=== PATIENT | female | born 1940 | race Caucasian/White ===

== ENCOUNTER 2018-12-03 22:20 | Inpatient (IN) | payer MEDICARE, OTHER ==
--- NOTE | 2018-12-03 23:07 | ED ---
General Adult HPI - General Chief complaint: Recheck/Abnormal Lab/Rx Stated complaint: abnormal labs Time Seen by Provider: 12/03/18 22:24 Source: patient, EMS Mode of arrival: EMS Limitations: no limitations - History of Present Illness Initial comments: This patient is a 78-year-old woman with history of COPD and a number of other chronic medical issues who is transferred here from [facility], where she was seen earlier today. The patient states that she had gone there because she was not feeling well. She did have a difficult time fully characterizing what was going on but has been having generalized weakness and shortness of breath with a cough. At the other hospital she had workup that included CT of the brain, chest x-ray, and lab studies. She was diagnosed there with COPD exacerbation, hyponatremia, hypomagnesemia, and possible hypothyroidism and she was transferred here for further treatment. When I interview the patient, she states that her breathing is somewhat improved from earlier. She is only complaining of some back pain that she states is from a rib fracture she had between 1 and 2 weeks ago. She is denying other complaints. -: days(s) Consistency: constant Improves with: none Worsens with: none Associated Symptoms: cough, shortness of breath, weakness Treatments Prior to Arrival: other - Related Data Home Medications Medication Instructions Recorded Confirmed ALPRAZolam [Xanax] 0.25 mg PO BID PRN 12/03/18 12/03/18 Albuterol Nebulized [Ventolin 2.5 mg INHALATION RT-QID PRN 12/03/18 12/03/18 Nebulized] Albuterol Sulfate [Proair Hfa] 1 - 2 puff INHALATION RT-QID PRN 12/03/18 12/03/18 Cetirizine HCl 10 mg PO DAILY 12/03/18 12/03/18 Esomeprazole Magnesium [NexIUM] 40 mg PO DAILY 12/03/18 12/03/18 Levothyroxine Sodium [Synthroid] 175 mcg PO DAILY 12/03/18 12/03/18 Phenytoin Sodium Extended 100 mg PO BID 12/03/18 12/04/18 [Dilantin] Sertraline [Zoloft] 50 mg PO BID 12/03/18 12/03/18 Simvastatin 40 mg PO HS 12/03/18 12/03/18 Timolol 0.5% Ophth Soln [Timoptic 1 drop BOTH EYES DAILY 12/03/18 12/03/18 0.5% Ophth Soln] Previous Rx's Medication Instructions Recorded Budesonide [Pulmicort] 1 mg INHALATION RT-BID #30 nebu 12/05/18 Doxycycline [Vibramycin] 100 mg PO BID #6 cap 12/05/18 Valsartan [Diovan] 160 mg PO DAILY #30 tablet 12/05/18 predniSONE 10 mg PO DAILY #30 tab 12/05/18 Allergies Allergy/AdvReac Type Severity Reaction Status Date / Time acetaminophen Allergy Unknown Verified 12/03/18 22:49 [From Darvocet-N] diazepam [From Valium] Allergy Unknown Verified 12/03/18 22:49 Iodinated Contrast- Oral and Allergy Unknown Verified 12/03/18 22:49 IV Dye meperidine [From Demerol] Allergy Unknown Verified 12/03/18 22:49 propoxyphene Allergy Unknown Verified 12/03/18 22:49 [From Darvocet-N] ragweed pollen Allergy Unknown Verified 12/03/18 22:49 phenytoin AdvReac Confusion Verified 12/06/18 11:16 Review of Systems ROS Statement: Those systems with pertinent positive or pertinent negative responses have been documented in the HPI. ROS Other: All systems not noted in ROS Statement are negative. Constitutional: Reports: weakness (Generalized). Denies: fever, chills Eyes: Denies: vision change ENT: Denies: throat pain Respiratory: Reports: cough, dyspnea, wheezes Cardiovascular: Denies: chest pain, palpitations, orthopnea, syncope Gastrointestinal: Denies: abdominal pain, vomiting, diarrhea Genitourinary: Denies: dysuria Musculoskeletal: Denies: back pain Skin: Denies: rash Neurological: Denies: headache, weakness, numbness Past Medical History Past Medical History: COPD Additional Past Medical History / Comment(s): Hypothyroidism, Brain Aneurysm, NSTEMI, Skin Cancer History of Any Multi-Drug Resistant Organisms: None Reported Past Surgical History: Appendectomy, Cholecystectomy, Hysterectomy Additional Past Surgical History / Comment(s): breast lumpectomy Past Psychological History: Anxiety, Depression Smoking Status: Former smoker Past Alcohol Use History: None Reported Past Drug Use History: None Reported - Past Family History Mother Family Medical History: Cancer Additional Family Medical History / Comment(s): unsure what type of cancer General Exam General appearance: alert, in no apparent distress Head exam: Present: atraumatic, normocephalic Eye exam: Present: normal appearance. Absent: scleral icterus, conjunctival injection ENT exam: Present: normal oropharynx Neck exam: Present: normal inspection, full ROM Respiratory exam: Present: wheezes. Absent: respiratory distress, rales, rhonchi, stridor Cardiovascular Exam: Present: regular rate, normal rhythm, normal heart sounds GI/Abdominal exam: Present: soft. Absent: distended, tenderness, guarding, rebound, rigid, mass Extremities exam: Present: normal inspection, normal capillary refill. Absent: pedal edema, calf tenderness Neurological exam: Present: alert Skin exam: Present: warm, dry, intact, normal color. Absent: rash Course Vital Signs 12/03/18 12/04/18 22:22 00:16 Temperature 97.3 F L Pulse Rate 72 81 Respiratory 18 18 Rate Blood Pressure 119/60 133/84 O2 Sat by Pulse 95 96 Oximetry Medical Decision Making - Lab Data Result diagrams: 12/04/18 07:25 12/07/18 07:04 Disposition Clinical Impression: COPD (chronic obstructive pulmonary disease) Disposition: ADMITTED IP TO THIS HOSP Condition: Fair Is patient prescribed a controlled substance at d/c from ED?: No
[2018-12-03] MEDS: SODIUM CHLORIDE 0.9% 1,000 ML IV SCH (23:46)
[2018-12-04 00:44] VITALS: BMI 35.6
[2018-12-04] MEDS: methylPREDNISolone SOD SUCCI 125 MG/2 ML VIAL IV SCH ×3 (00:54→12:40)
[2018-12-04] MEDS: ALPRAZolam 0.25 MG TAB PO PRN (00:54)
[2018-12-04] MEDS: LEVOTHYROXINE 100 MCG TAB PO SCH (05:44)
[2018-12-04] MEDS: LEVOTHYROXINE 75 MCG TAB PO SCH (05:44)
[2018-12-04] MEDS: ALBUTEROL NEBULIZED 2.5 MG/3 ML INHALATION SCH ×2 (07:10→11:49)
[2018-12-04 07:45] LABS: Basophils % (A) 0 %; Eosinophils % (A) 2 %; HCT 36.5 % (34.0-46.0); HGB 11.5 gm/dL (11.4-16.0); Lymphocytes # (A) 0.4 k/uL (1.0-4.8); Lymphocytes % (A) 13 %; MCH 29.5 pg (25.0-35.0); MCHC 31.5 g/dL (31.0-37.0); MCV 93.7 fL (80.0-100.0); Mean Platelet Volume 8.5; Monocytes # (A) 0.1 k/uL (0-1.0); Monocytes % (A) 4 %; Neutrophils # (A) 2.2 k/uL (1.3-7.7); Neutrophils % (A) 80 %; Platelet Count 208 k/uL (150-450); RBC 3.89 m/uL (3.80-5.40); RDW 15.2 % (11.5-15.5); WBC 2.7 k/uL (3.8-10.6)
[2018-12-04 07:54] LABS: ALT 56 U/L (9-52); AST 96 U/L (14-36); Albumin 4.4 g/dL (3.5-5.0); Alkaline Phosphatase 119 U/L (38-126); Anion Gap 5 mmol/L; Blood Urea Nitrogen 13 mg/dL (7-17); Calcium 9.2 mg/dL (8.4-10.2); Carbon Dioxide 35 mmol/L (22-30); Chloride 89 mmol/L (98-107); Glucose 122 mg/dL (74-99); Potassium 5.1 mmol/L (3.5-5.1); Sodium 129 mmol/L (137-145); Total Bilirubin 0.5 mg/dL (0.2-1.3); Total Protein 7.1 g/dL (6.3-8.2)
[2018-12-04] MEDS ORDERED: BUDESONIDE 0.5 MG/2 ML NEBU INHALATION SCH (08:00)
[2018-12-04] MEDS ORDERED: IPRATROPIUM-ALBUTEROL 3 ML NEB INHALATION SCH (08:00)
[2018-12-04] MEDS: PANTOPRAZOLE 40 MG TABLET PO SCH (08:08)
[2018-12-04] MEDS: SERTRALINE 50 MG TAB PO SCH ×2 (08:08→20:18)
[2018-12-04] MEDS ORDERED: PHENYTOIN SODIUM EXTENDED 100 MG CAP PO SCH (10:00)
[2018-12-04] MEDS: SODIUM CHLORIDE 0.9% 1,000 ML IV SCH ×2 (12:46→19:38)
--- NOTE | 2018-12-04 13:44 | P.HPIM ---
History of Present Illness Patient is pleasant 78-year-old female left known history of COPD based 2 L of oxygen at home With compensative shortness of breath and wheezing was transferred from [facility]. Patient was on 5 L of oxygen is treated now on 4 L. Patient is feeling much better today complaining of shortness of breath unable to bring up anything when she is coughing. Chest x-ray did not show any significant abnormality patient also had workup with CT of the brain not sure why but did not show any significant abnormality either. Patient is bit hyponatremic because of which diuretic therapy is being held. There is no evidence of pneumonia patient doesn't have any fevers, leukocytosis. Review of Systems REVIEW OF SYSTEMS: CONSTITUTIONAL: No fever, no malaise, no fatigue. HEENT: No recent visual problems or hearing problems. Denied any sore throat. CARDIOVASCULAR: No chest pain, orthopnea, PND, no palpitations, no syncope. PULMONARY: no hemoptysis. GASTROINTESTINAL: No diarrhea, no nausea, no vomiting, no abdominal pain. NEUROLOGICAL: No headaches, no weakness, no numbness. HEMATOLOGICAL: Denies any bleeding or petechiae. GENITOURINARY: Denies any burning micturition, frequency, or urgency. MUSCULOSKELETAL/RHEUMATOLOGICAL: Denies any joint pain, swelling, or any muscle pain. ENDOCRINE: Denies any polyuria or polydipsia. The rest of the 14-point review of systems is negative. Past Medical History Past Medical History: COPD, Seizure Disorder Additional Past Medical History / Comment(s): Hypothyroidism, Brain Aneurysm, NSTEMI, Skin Cancer History of Any Multi-Drug Resistant Organisms: None Reported Past Surgical History: Appendectomy, Cholecystectomy, Hysterectomy Additional Past Surgical History / Comment(s): breast lumpectomy Past Anesthesia/Blood Transfusion Reactions: No Reported Reaction Past Psychological History: Anxiety, Depression Smoking Status: Former smoker Past Alcohol Use History: None Reported Past Drug Use History: None Reported - Past Family History Mother Family Medical History: Cancer Additional Family Medical History / Comment(s): unsure what type of cancer Medications and Allergies Home Medications Medication Instructions Recorded Confirmed Type ALPRAZolam [Xanax] 0.25 mg PO BID PRN 12/03/18 12/03/18 History Albuterol Nebulized [Ventolin 2.5 mg INHALATION RT-QID PRN 12/03/18 12/03/18 History Nebulized] Albuterol Sulfate [Proair Hfa] 1 - 2 puff INHALATION RT-QID PRN 12/03/18 12/03/18 History Cetirizine HCl 10 mg PO DAILY 12/03/18 12/03/18 History Esomeprazole Magnesium [NexIUM] 40 mg PO DAILY 12/03/18 12/03/18 History Levothyroxine Sodium [Synthroid] 175 mcg PO DAILY 12/03/18 12/03/18 History Phenytoin Sodium Extended 100 mg PO BID 12/03/18 12/04/18 History [Dilantin] Sertraline [Zoloft] 50 mg PO BID 12/03/18 12/03/18 History Simvastatin 40 mg PO HS 12/03/18 12/03/18 History Timolol 0.5% Ophth Soln [Timoptic 1 drop BOTH EYES DAILY 12/03/18 12/03/18 History 0.5% Ophth Soln] Valsartan/Hydrochlorothiazide 1 tab PO HS 12/03/18 12/03/18 History [Valsartan-Hctz 160-12.5 mg Tab] Allergies Allergy/AdvReac Type Severity Reaction Status Date / Time acetaminophen Allergy Unknown Verified 12/03/18 22:49 [From Darvocet-N] diazepam [From Valium] Allergy Unknown Verified 12/03/18 22:49 Iodinated Contrast- Oral and Allergy Unknown Verified 12/03/18 22:49 IV Dye meperidine [From Demerol] Allergy Unknown Verified 12/03/18 22:49 propoxyphene Allergy Unknown Verified 12/03/18 22:49 [From Darvocet-N] ragweed pollen Allergy Unknown Verified 12/03/18 22:49 Physical Exam Vitals: Vital Signs Temp Pulse Pulse Resp BP BP BP 12/04/18 12:30 96.7 F L 69 20 163/69 12/04/18 11:50 74 12/04/18 07:23 72 12/04/18 07:10 72 12/04/18 05:15 97.6 F 68 18 116/83 12/04/18 00:47 97.4 F L 78 22 149/89 12/04/18 00:25 77 18 113/84 12/04/18 00:16 81 18 133/84 12/03/18 22:22 97.3 F L 72 18 119/60 Pulse Ox 12/04/18 12:30 96 12/04/18 11:50 12/04/18 07:23 12/04/18 07:10 12/04/18 05:15 98 12/04/18 00:47 92 L 12/04/18 00:25 96 12/04/18 00:16 96 12/03/18 22:22 95 Intake and Output 12/03/18 12/04/18 12/04/18 22:59 06:59 14:59 Other: Voiding Method Toilet # Voids 1 2 Weight 104.78 kg PHYSICAL EXAMINATION: GENERAL: The patient is alert and oriented x3, not in any acute distress. Well developed, well nourished. HEENT: Pupils are round and equally reacting to light. EOMI. No scleral icterus. No conjunctival pallor. Normocephalic, atraumatic. No pharyngeal erythema. No thyromegaly. CARDIOVASCULAR: S1 and S2 present. No murmurs, rubs, or gallops. PULMONARY: Expiratory wheezing on exam moderate ABDOMEN: Soft, nontender, nondistended, normoactive bowel sounds. No palpable organomegaly. MUSCULOSKELETAL: No joint swelling or deformity. EXTREMITIES: No cyanosis, clubbing, or pedal edema. NEUROLOGICAL: Gross neurological examination did not reveal any focal deficits. SKIN: No rashes. Results CBC & Chem 7: 12/04/18 07:25 12/04/18 07:25 Labs: Abnormal Lab Results - Last 24 Hours (Table) 12/04/18 12/04/18 Range/Units 07:25 07:25 WBC 2.7 L (3.8-10.6) k/uL Lymphocytes # 0.4 L (1.0-4.8) k/uL Sodium 129 L (137-145) mmol/L Chloride 89 L (98-107) mmol/L Carbon Dioxide 35 H (22-30) mmol/L Glucose 122 H (74-99) mg/dL AST 96 H (14-36) U/L ALT 56 H (9-52) U/L Thrombosis Risk Factor Assmnt - Choose All That Apply Any of the Below Risk Factors Present?: Yes Each Factor Represents 1 point: Abnormal pulmonary function (COPD), Obesity (BMI >25) Other Risk Factors: Yes Each Risk Factor Represents 3 Points: Age 75 years or older Other congenital or acquired thrombophilia - If yes, enter type in comment: No Thrombosis Risk Factor Assessment Total Risk Factor Score: 5 Thrombosis Risk Factor Assessment Level: High Risk Assessment and Plan Plan: Equally and chronic hypercapnic respiratory failure secondary to COPD ex acerbation patient will be continued on systemic steroids and I will not start her on antibiotics yet abut the pulmonary will be consulted. Patient quit smoking 10 years ago -Hyponatremia secondary to diuretic therapy for hypertension which will be held valsartan will be continued -Seizure disorder continue with the Hypothyroidism -Hypertension -Glaucoma -Mildly elevated liver enzymes repeat them tomorrow -GI prophylaxis with the Pepcid DVT prophylaxis early ambulation
--- NOTE | 2018-12-04 14:35 | P.CNPUL ---
History of Present Illness Consult date: 12/04/18 Requesting physician: Xin San Reason for consult: dyspnea, cough Chief complaint: Shortness of breath, generalized weakness, cough History of present illness: This is 78-year-old white female patient who follows with the BROOK Franco at Dr. Marrufo's office with past medical history of severe COPD, with a baseline FEV1 of 0.5 L or 19% of predicted, with chronic hypoxemic respiratory failure, chronic cor pulmonale, chronic dyspnea, hypertension, hypothyroidism, seizure disorder, osteoarthritis, brain aneurysm, previous episodes of myocardial infarction who presented to her primary care provider office yesterday on 12/03/2018 with complaints of worsening shortness of breath, cough. Patient was sent to the emergency department for further evaluation, where chest x-ray was completed and did not show any significant abnormality. Patient also had a CT of the brain at another institution for an unknown reason. Lab work showed hyponatremia, hypomagnesemia, and possible hypothyroidism, patient was transferred to [facility] for further treatment. Lab work completed here showed a white blood cell count of 2.7, hemoglobin of 11.5, serum sodium was 129, potassium is 5.1, chloride was 89, CO2 is 35, BUN is 13, creatinine is 0.60. AST is 96, ALT 56, alkaline phosphatase was 119, Dilantin level was 21. Patient was started on IV steroids, nebulized bronchodilators, and on today's exam patient states she's feeling much better, short of breath. Her diuretics are on hold for evidence of hyponatremia, she is awake and alert, no altered mentation, no seizure activity. There has been no fever or chills. Lung sounds reveal some expiratory wheezes, patient is in no acute distress. She is requesting to go home today. Review of Systems All systems: negative Constitutional: Denies chills, Denies fever Eyes: denies blurred vision, denies pain Ears, nose, mouth and throat: Denies headache, Denies sore throat Cardiovascular: Denies chest pain, Denies shortness of breath Respiratory: Reports dyspnea Gastrointestinal: Denies abdominal pain, Denies diarrhea, Denies nausea, Denies vomiting Genitourinary: Denies dysuria, Denies hematuria Musculoskeletal: Denies myalgias Integumentary: Denies pruritus, Denies rash Neurological: Denies numbness, Denies weakness Psychiatric: Denies anxiety, Denies depression Endocrine: Denies fatigue, Denies weight change Past Medical History Past Medical History: COPD, Seizure Disorder Additional Past Medical History / Comment(s): Hypothyroidism, Brain Aneurysm, NSTEMI, Skin Cancer History of Any Multi-Drug Resistant Organisms: None Reported Past Surgical History: Appendectomy, Cholecystectomy, Hysterectomy Additional Past Surgical History / Comment(s): breast lumpectomy Past Anesthesia/Blood Transfusion Reactions: No Reported Reaction Past Psychological History: Anxiety, Depression Smoking Status: Former smoker Past Alcohol Use History: None Reported Past Drug Use History: None Reported - Past Family History Mother Family Medical History: Cancer Additional Family Medical History / Comment(s): unsure what type of cancer Medications and Allergies Home Medications Medication Instructions Recorded Confirmed Type ALPRAZolam [Xanax] 0.25 mg PO BID PRN 12/03/18 12/03/18 History Albuterol Nebulized [Ventolin 2.5 mg INHALATION RT-QID PRN 12/03/18 12/03/18 History Nebulized] Albuterol Sulfate [Proair Hfa] 1 - 2 puff INHALATION RT-QID PRN 12/03/18 12/03/18 History Cetirizine HCl 10 mg PO DAILY 12/03/18 12/03/18 History Esomeprazole Magnesium [NexIUM] 40 mg PO DAILY 12/03/18 12/03/18 History Levothyroxine Sodium [Synthroid] 175 mcg PO DAILY 12/03/18 12/03/18 History Phenytoin Sodium Extended 100 mg PO BID 12/03/18 12/04/18 History [Dilantin] Sertraline [Zoloft] 50 mg PO BID 12/03/18 12/03/18 History Simvastatin 40 mg PO HS 12/03/18 12/03/18 History Timolol 0.5% Ophth Soln [Timoptic 1 drop BOTH EYES DAILY 12/03/18 12/03/18 History 0.5% Ophth Soln] Valsartan/Hydrochlorothiazide 1 tab PO HS 12/03/18 12/03/18 History [Valsartan-Hctz 160-12.5 mg Tab] Allergies Allergy/AdvReac Type Severity Reaction Status Date / Time acetaminophen Allergy Unknown Verified 12/03/18 22:49 [From Darvocet-N] diazepam [From Valium] Allergy Unknown Verified 12/03/18 22:49 Iodinated Contrast- Oral and Allergy Unknown Verified 12/03/18 22:49 IV Dye meperidine [From Demerol] Allergy Unknown Verified 12/03/18 22:49 propoxyphene Allergy Unknown Verified 12/03/18 22:49 [From Darvocet-N] ragweed pollen Allergy Unknown Verified 12/03/18 22:49 Physical Exam Vitals: Vital Signs Temp Pulse Pulse Resp BP BP BP 12/04/18 12:30 96.7 F L 69 20 163/69 12/04/18 11:50 74 12/04/18 07:23 72 12/04/18 07:10 72 12/04/18 05:15 97.6 F 68 18 116/83 12/04/18 00:47 97.4 F L 78 22 149/89 12/04/18 00:25 77 18 113/84 12/04/18 00:16 81 18 133/84 12/03/18 22:22 97.3 F L 72 18 119/60 Pulse Ox 12/04/18 12:30 96 12/04/18 11:50 12/04/18 07:23 12/04/18 07:10 12/04/18 05:15 98 12/04/18 00:47 92 L 12/04/18 00:25 96 12/04/18 00:16 96 12/03/18 22:22 95 Intake and Output 12/03/18 12/04/18 12/04/18 22:59 06:59 14:59 Other: Voiding Method Toilet # Voids 1 2 Weight 104.78 kg GENERAL EXAM: Alert, doesn't, 78-year-old white female 4 L of oxygen with a pulse ox of 96%, comfortable in no apparent distress. HEAD: Normocephalic/atraumatic. EYES: Normal reaction of pupils, equal size. Conjunctiva pink, sclera white. NOSE: Clear with pink turbinates. THROAT: No erythema or exudates. NECK: No masses, no JVD, no thyroid enlargement, no adenopathy. CHEST: No chest wall deformity. Symmetrical expansion. LUNGS: Equal air entry with no crackles, and there are some expiratory wheezes CVS: Regular rate and rhythm, normal S1 and S2, no gallops, no murmurs, no rubs ABDOMEN: Soft, nontender. No hepatosplenomegaly, normal bowel sounds, no guarding or rigidity. EXTREMITIES: No clubbing, no edema, no cyanosis, 2+ pulses and upper and lower extremities. MUSCULOSKELETAL: Muscle strength and tone normal. SPINE: No scoliosis or deformity SKIN: No rashes CENTRAL NERVOUS SYSTEM: Alert and oriented -3. No focal deficits, tone is normal in all 4 extremities. PSYCHIATRIC: Alert and oriented -3. Appropriate affect. Intact judgment and insight. Results - Laboratory Findings CBC and BMP: 12/04/18 07:25 12/04/18 07:25 Abnormal lab findings: Abnormal Labs 12/04/18 12/04/18 07:25 07:25 WBC 2.7 L Lymphocytes # 0.4 L Sodium 129 L Chloride 89 L Carbon Dioxide 35 H Glucose 122 H AST 96 H ALT 56 H Assessment and Plan Plan: Assessment: #1. Acute on chronic hypoxemic respiratory failure related to acute exacerbation of COPD, and the reports of the chest x-ray completed at another institution were negative for acute pulmonary process #2. Severe stage IV COPD, with a baseline FEV1 of 0.50 L or 19% of predicted, with chronic hypoxemic respiratory failure #3. Hyponatremia and hypochloremia, could be related to diuretics, patient is receiving gentle hydration #4. Chronic hypercapnic respiratory failure related to COPD #5. Leukopenia #6. Hypothyroidism #7. Hyperlipidemia #8. Hypertension #9. Chronic cor pulmonale #10. GERD/reflux #11. Intracranial aneurysm #12. Seizure disorder Plan: Continue current medical treatment, IV steroids, nebulized bronchodilators, patient is already feeling better, she is requesting to go home today, no fever or chills, vital signs have been stable, she could probably be considered for discharge home in the next 24 hours, repeat electrolytes and renal profile. Obtain a follow-up chest x-ray in the morning I performed a history & physical examination of the patient and discussed their management with my nurse practitioner, Oliva Mota. I reviewed the nurse practitioner's note and agree with the documented findings and plan of care. Lung sounds are positive for diffuse wheezes throughout the lung meyers. The findings and the impression was discussed with the patient. I attest to the documentation by the nurse practitioner. Time with Patient: Greater than 30
[2018-12-04] MEDS: IPRATROPIUM-ALBUTEROL 3 ML NEB INHALATION SCH ×2 (16:04→19:27)
[2018-12-04] MEDS: HEPARIN SODIUM,PORCINE 5,000 UNIT/ML 1 ML VIAL SQ SCH ×2 (18:46→23:15)
[2018-12-04] MEDS: FORMOTEROL FUMARATE 20 MCG/2 ML NEBU INHALATION SCH (19:27)
[2018-12-04] MEDS: BUDESONIDE 1 MG/2 ML NEBU INHALATION SCH (19:27)
[2018-12-04] MEDS: FAMOTIDINE 20 MG TAB PO SCH (20:18)
[2018-12-04] MEDS: DOXYCYCLINE 100 MG CAP PO SCH (20:18)
[2018-12-04] MEDS: PHENYTOIN SODIUM EXTENDED 100 MG CAP PO SCH (20:18)
[2018-12-04] MEDS: methylPREDNISolone SOD SUCCI 40 MG/ML 1 ML VIAL IV SCH (20:18)
[2018-12-04] MEDS: ATORVASTATIN 20 MG TAB PO SCH (20:18)
[2018-12-04] MEDS ORDERED: HYDROCHLOROTHIAZIDE PO SCH (21:00)
[2018-12-04] MEDS ORDERED: [UNRECOGNIZED DRUG - OTHER] PO SCH (21:00)
[2018-12-04] MEDS ORDERED: VALSARTAN PO SCH (21:00)
[2018-12-05] MEDS: ALPRAZolam 0.25 MG TAB PO PRN ×3 (00:11→20:23)
[2018-12-05] MEDS: SODIUM CHLORIDE 0.9% 1,000 ML IV SCH (05:24)
[2018-12-05] MEDS: LEVOTHYROXINE 75 MCG TAB PO SCH (05:37)
[2018-12-05] MEDS: LEVOTHYROXINE 100 MCG TAB PO SCH (05:37)
[2018-12-05] MEDS: FORMOTEROL FUMARATE 20 MCG/2 ML NEBU INHALATION SCH ×2 (07:26→19:43)
[2018-12-05] MEDS: BUDESONIDE 1 MG/2 ML NEBU INHALATION SCH ×2 (07:26→19:43)
[2018-12-05] MEDS: IPRATROPIUM-ALBUTEROL 3 ML NEB INHALATION SCH ×4 (07:26→19:43)
[2018-12-05] MEDS: methylPREDNISolone SOD SUCCI 40 MG/ML 1 ML VIAL IV SCH (08:06)
[2018-12-05] MEDS: PANTOPRAZOLE 40 MG TABLET PO SCH (08:06)
[2018-12-05] MEDS: FAMOTIDINE 20 MG TAB PO SCH ×2 (08:07→20:23)
[2018-12-05] MEDS: HEPARIN SODIUM,PORCINE 5,000 UNIT/ML 1 ML VIAL SQ SCH ×3 (08:07→23:07)
[2018-12-05] MEDS: DOXYCYCLINE 100 MG CAP PO SCH ×2 (08:07→20:23)
[2018-12-05] MEDS: PHENYTOIN SODIUM EXTENDED 100 MG CAP PO SCH (08:07)
[2018-12-05] MEDS: SERTRALINE 50 MG TAB PO SCH ×2 (08:08→20:23)
[2018-12-05] MEDS: TIMOLOL 0.5% OPHTH DROPS 5 ML BTL BOTH EYES SCH (08:08)
[2018-12-05 08:20] LABS: ALT 52 U/L (9-52); AST 86 U/L (14-36); Albumin 4.1 g/dL (3.5-5.0); Alkaline Phosphatase 102 U/L (38-126); Anion Gap 3 mmol/L; Blood Urea Nitrogen 12 mg/dL (7-17); Calcium 9.3 mg/dL (8.4-10.2); Carbon Dioxide 37 mmol/L (22-30); Chloride 94 mmol/L (98-107); Glucose 85 mg/dL (74-99); Magnesium 1.5 mg/dL (1.6-2.3); Potassium 4.8 mmol/L (3.5-5.1); Sodium 134 mmol/L (137-145); Total Bilirubin 0.3 mg/dL (0.2-1.3); Total Protein 6.6 g/dL (6.3-8.2)
--- NOTE | 2018-12-05 08:23 | XR ---
EXAMINATION TYPE: XR chest 2V DATE OF EXAM: 12/05/2018 COMPARISON: NONE HISTORY: Shortness of breath TECHNIQUE: Frontal and lateral views of the chest are obtained. FINDINGS: The lungs are hyperaerated with flattening of the diaphragms compatible with underlying CO PD. Bibasilar atelectasis is seen. Cardia mediastinal silhouette is upper limits of normal. No focal consolidation, pleural effusion or pneumothorax. Punctate dense 3 mm nodule overlies the right clavic le and given its density could represent a granuloma however confirmation with CT as there are no douglas ors for comparison of stability. IMPRESSION: 1. Bibasilar atelectasis with underlying COPD. 2. 3 mm hyperdense right apical nodule likely represents a granuloma however comparisons with any douglas or outside imaging to determine stability would be recommended.
[2018-12-05] MEDS ORDERED: FUROSEMIDE 10 MG/ML 2 ML VIAL IV ONE (08:44)
--- NOTE | 2018-12-05 10:25 | P.PN ---
Subjective Progress Note Date: 12/05/18 Principal diagnosis: Acute on chronic hypercapnic respiratory failure related to acute exacerbation of COPD This is 78-year-old white female patient who follows with the BROOK Franco at Dr. Marrufo's office with past medical history of severe COPD, with a baseline FEV1 of 0.5 L or 19% of predicted, with chronic hypoxemic respiratory failure, chronic cor pulmonale, chronic dyspnea, hypertension, hypothyroidism, seizure disorder, osteoarthritis, brain aneurysm, previous episodes of myocardial infarction who presented to her primary care provider office yesterday on 12/03 with complaints of worsening shortness of breath, cough. Patient was sent to the emergency department for further evaluation, where chest x-ray was completed and did not show any significant abnormality. Patient also had a CT of the brain at another institution for an unknown reason. Lab work showed hyponatremia, hypomagnesemia, and possible hypothyroidism, patient was transferred to [facility] for further treatment. Lab work completed here showed a white blood cell count of 2.7, hemoglobin of 11.5, serum sodium was 129, potassium is 5.1, chloride was 89, CO2 is 35, BUN is 13, creatinine is 0.60. AST is 96, ALT 56, alkaline phosphatase was 119, Dilantin level was 21. Patient was started on IV steroids, nebulized bronchodilators, and on today's exam patient states she's feeling much better, short of breath. Her diuretics are on hold for evidence of hyponatremia, she is awake and alert, no altered mentation, no seizure activity. There has been no fever or chills. Lung sounds reveal some expiratory wheezes, patient is in no acute distress. She is requesting to go home today. On 12/05/2018 patient seen in follow-up on medical surgical floor. Doing well, she states she is breathing easier, vital signs are stable, no fever or chills, lung sounds are decreased at the bases, with minimal wheezing, today's labs show improvement in serum sodium, up to 134, potassium is 4.8, chloride is 94, CO2 is 37, bun of 12, and creatinine 0.56. Today's chest x-ray has been reviewed with Dr. Molina, and shows bibasilar atelectasis with underlying COPD, small bilateral pleural effusions, and cephalization consistent with fluid overload, we will stop the IV fluids, will give the patient a dose of IV Lasix, overall patient is feeling better, she can still be discharged home today. No acute events overnight. Objective - Vital Signs Vital signs: Vital Signs Temp 98 F 12/05/18 06:10 Pulse 69 12/05/18 05:00 Resp 18 12/05/18 05:00 BP 129/85 12/05/18 05:00 Pulse Ox 96 12/05/18 05:00 Intake & Output 12/04/18 12/05/18 12/05/18 18:59 06:59 18:59 Intake Total 1680 Balance 1680 Intake: Intake, IV Titration 1200 Amount Sodium Chloride 0.9% 1, 1200 000 ml @ 100 mls/hr IV . Q10H [facility] Rx#:[id number] Oral 480 Other: Voiding Method Toilet Toilet Bedside Commode Bedside Commode # Voids 2 4 - Exam GENERAL EXAM: Alert, doesn't, 78-year-old white female 4 L of oxygen with a pulse ox of 96%, comfortable in no apparent distress. HEAD: Normocephalic/atraumatic. EYES: Normal reaction of pupils, equal size. Conjunctiva pink, sclera white. NOSE: Clear with pink turbinates. THROAT: No erythema or exudates. NECK: No masses, no JVD, no thyroid enlargement, no adenopathy. CHEST: No chest wall deformity. Symmetrical expansion. LUNGS: Equal air entry with minimal expiratory wheezes CVS: Regular rate and rhythm, normal S1 and S2, no gallops, no murmurs, no rubs ABDOMEN: Soft, nontender. No hepatosplenomegaly, normal bowel sounds, no guarding or rigidity. EXTREMITIES: No clubbing, no edema, no cyanosis, 2+ pulses and upper and lower extremities. MUSCULOSKELETAL: Muscle strength and tone normal. SPINE: No scoliosis or deformity SKIN: No rashes CENTRAL NERVOUS SYSTEM: Alert and oriented -3. No focal deficits, tone is normal in all 4 extremities. PSYCHIATRIC: Alert and oriented -3. Appropriate affect. Intact judgment and insight. - Labs CBC & Chem 7: 12/04/18 07:25 12/05/18 07:32 Labs: Abnormal Lab Results - Last 24 Hours (Table) 12/05/18 Range/Units 07:32 Sodium 134 L (137-145) mmol/L Chloride 94 L (98-107) mmol/L Carbon Dioxide 37 H (22-30) mmol/L Magnesium 1.5 L (1.6-2.3) mg/dL AST 86 H (14-36) U/L Assessment and Plan Plan: Assessment: #1. Acute on chronic hypoxemic respiratory failure related to acute exacerbation of COPD, and the reports of the chest x-ray completed at another institution were negative for acute pulmonary process #2. Severe stage IV COPD, with a baseline FEV1 of 0.50 L or 19% of predicted, with chronic hypoxemic respiratory failure #3. Hyponatremia and hypochloremia, could be related to diuretics, patient is receiving gentle hydration #4. Chronic hypercapnic respiratory failure related to COPD #5. Leukopenia #6. Hypothyroidism #7. Hyperlipidemia #8. Hypertension #9. Chronic cor pulmonale #10. GERD/reflux #11. Intracranial aneurysm #12. Seizure disorder #13. Dense 3 mm nodule in the right apical lobe noted on the chest x-ray, will be followed on outpatient basis Plan: Follow-up chest x-ray today shows bilateral small effusions, cephalization, mild fluid overload, we'll stop the IV fluids, will give the patient dose of Lasix, patient is still able to be discharged later today, remains stable, doing better, breathing better, serum sodium is improving. Patient can follow up with Dr. Hsu at the [facility] in 7-10 days. I performed a history & physical examination of the patient and discussed their management with my nurse practitioner, Oliva Mota. I reviewed the nurse practitioner's note and agree with the documented findings and plan of care. Lung sounds are positive for diffuse wheezes throughout the lung meyers. The findings and the impression was discussed with the patient. I attest to the documentation by the nurse practitioner. Time with Patient: Less than 30
--- NOTE | 2018-12-05 16:31 | P.PN ---
Subjective 78-year-old female was admitted secondary to COPD exacerbation patient is still wheezing quite a bit infused after Dilantin. Patient had IV has steroids will be switched to oral. Patient doesn't have much of a movement will need to continue with inhalational treatments oral steroids. Confusion was apparently secondary to the generic Dilantin which she always has problems with in the past patient will take her own Dilantin and will monitor her overnight because of the confusion. And patient doesn't get better, we need to evaluate for other causes for her confusion and patient although is able to provide history to me Constitutional: Denied any fatigue denied any fever. Cardio vascular: denied any chest pain, palpitations Gastrointestinal denied any nausea vomiting Pulmonary: Denied any shortness of breath cough Neurologic denied any new focal deficits All inpatient medications were reviewed and appropriate changes in these medicat ions as dictated in the interval history and assessment and plan. Objective - Vital Signs Vital signs: Vital Signs Temp 97.3 F L 12/05/18 12:16 Pulse 59 L 12/05/18 12:16 Resp 17 12/05/18 12:16 BP 149/90 12/05/18 12:16 Pulse Ox 95 12/05/18 12:16 Intake & Output 12/04/18 12/05/18 12/05/18 18:59 06:59 18:59 Intake Total 1680 300 Balance 1680 300 Intake: Intake, IV Titration 1200 300 Amount Sodium Chloride 0.9% 1, 1200 300 000 ml @ 100 mls/hr IV . Q10H [facility] Rx#:[id number] Oral 480 Other: Voiding Method Toilet Toilet Bedside Commode Bedside Commode # Voids 2 4 - Exam PHYSICAL EXAMINATION: GENERAL: The patient is alert and oriented x2-3, not in any acute distress. Well developed, well nourished. HEENT: Pupils are round and equally reacting to light. EOMI. No scleral icterus. No conjunctival pallor. Normocephalic, atraumatic. No pharyngeal erythema. No thyromegaly. CARDIOVASCULAR: S1 and S2 present. No murmurs, rubs, or gallops. PULMONARY: Very minimal air entry with significant expiratory wheezing on exam ABDOMEN: Soft, nontender, nondistended, normoactive bowel sounds. No palpable organomegaly. MUSCULOSKELETAL: No joint swelling or deformity. EXTREMITIES: No cyanosis, clubbing, or pedal edema. NEUROLOGICAL: Gross neurological examination did not reveal any focal deficits. SKIN: No rashes. - Labs CBC & Chem 7: 12/04/18 07:25 12/05/18 07:32 Labs: Abnormal Lab Results - Last 24 Hours (Table) 12/05/18 Range/Units 07:32 Sodium 134 L (137-145) mmol/L Chloride 94 L (98-107) mmol/L Carbon Dioxide 37 H (22-30) mmol/L Magnesium 1.5 L (1.6-2.3) mg/dL AST 86 H (14-36) U/L Assessment and Plan Plan: Acute on chronic chronic hypercapnic respiratory failure secondary to COPD exacerbation patient will be continued on systemic steroids and I will not start her on antibiotics yet abut the pulmonary will be consulted. Patient quit smo [facility]ohn 10 years ago -Hyponatremia secondary to diuretic improved with IV fluids but patient ended up receiving Lasix because of bilateral pleural effusions serum sodium is 134 although I believe his serum sodium will not drop much as hydrochlorothiazide as more effect and serum sodium than Lasix If and toxic encephalopathy and confusion secondary to Dilantin patient will be resumed back on her oral dose and her home non-generic Dilantin -Seizure disorder continue with dilantin Hypothyroidism -Hypertension -Glaucoma -Mildly elevated liver enzymes nonspecific elevation improved -GI prophylaxis with the Pepcid DVT prophylaxis early ambulation
[2018-12-05] MEDS: ATORVASTATIN 20 MG TAB PO SCH (20:23)
[2018-12-05] MEDS: DILANTIN 100 MG PO SCH (20:23)
[2018-12-06] MEDS: LEVOTHYROXINE 100 MCG TAB PO SCH (05:36)
[2018-12-06] MEDS: LEVOTHYROXINE 75 MCG TAB PO SCH (05:36)
[2018-12-06] MEDS: FORMOTEROL FUMARATE 20 MCG/2 ML NEBU INHALATION SCH ×2 (08:11→20:26)
[2018-12-06] MEDS: IPRATROPIUM-ALBUTEROL 3 ML NEB INHALATION SCH ×4 (08:11→20:26)
[2018-12-06] MEDS: BUDESONIDE 1 MG/2 ML NEBU INHALATION SCH ×2 (08:11→20:26)
[2018-12-06] MEDS: FAMOTIDINE 20 MG TAB PO SCH ×2 (08:50→19:41)
[2018-12-06] MEDS: predniSONE 20 MG TAB PO SCH (08:50)
[2018-12-06] MEDS: SERTRALINE 50 MG TAB PO SCH ×2 (08:51→19:41)
[2018-12-06] MEDS: DOXYCYCLINE 100 MG CAP PO SCH ×2 (08:51→19:41)
[2018-12-06] MEDS: DILANTIN 100 MG PO SCH ×2 (08:52→19:42)
[2018-12-06] MEDS: PANTOPRAZOLE 40 MG TABLET PO SCH (08:52)
[2018-12-06] MEDS: HEPARIN SODIUM,PORCINE 5,000 UNIT/ML 1 ML VIAL SQ SCH ×3 (08:52→23:03)
[2018-12-06 09:57] LABS: Anion Gap 1 mmol/L; Blood Urea Nitrogen 15 mg/dL (7-17); Calcium 9.3 mg/dL (8.4-10.2); Carbon Dioxide 37 mmol/L (22-30); Chloride 92 mmol/L (98-107); Glucose 89 mg/dL (74-99); Potassium 4.3 mmol/L (3.5-5.1); Sodium 130 mmol/L (137-145)
[2018-12-06] MEDS: TIMOLOL 0.5% OPHTH DROPS 5 ML BTL BOTH EYES SCH (15:16)
[2018-12-06] MEDS: ALPRAZolam 0.25 MG TAB PO PRN (19:41)
[2018-12-06] MEDS: ATORVASTATIN 20 MG TAB PO SCH (19:41)
--- NOTE | 2018-12-06 22:35 | P.PN ---
Subjective Progress Note Date: 12/06/18 Principal diagnosis: COPD exacerbation Mrs. Nunez is a 78-year-old female admitted to the hospital with COPD exacerbation. Patient's breathing status has improved but she was confused yesterday. Patient's at the bedside and states that if she takes generic Dilantin she always has issues with her mentation. So the patient's brought her own Dilantin from home that she started taking. As per the discussion with the states that her mentation is improving but not back to her baseline. Today the patient is sitting up in the bed appears to be no acute distress. Patient is still confused as she is thinks she is at home. Review of systems could not be done as the patient is still confused at times. But she mentions that her breathing has improved. Active Medications Albuterol/Ipratropium (Duoneb 0.5 Mg-3 Mg/3 Ml Soln) 3 ml INHALATION RT-QID [facility] Last Admin: 12/06/18 16:43 Dose: 3 ml Documented by: Albuterol/Ipratropium (Duoneb 0.5 Mg-3 Mg/3 Ml Soln) 3 ml INHALATION RT-Q2H PRN PRN Reason: Shortness Of Breath Or Wheezing Alprazolam (Xanax) 0.25 mg PO BID PRN PRN Reason: Anxiety Last Admin: 12/05/18 20:23 Dose: 0.25 mg Documented by: Atorvastatin Calcium (Lipitor) 20 mg PO HS [facility] Last Admin: 12/05/18 20:23 Dose: 20 mg Documented by: Budesonide (Pulmicort) 1 mg INHALATION RT-BID [facility] Last Admin: 12/06/18 08:11 Dose: 1 mg Documented by: Doxycycline Monohydrate (Vibramycin) 100 mg PO BID [facility] Last Admin: 12/06/18 08:51 Dose: 100 mg Documented by: Famotidine (Pepcid) 20 mg PO BID [facility] Last Admin: 12/06/18 08:50 Dose: 20 mg Documented by: Formoterol Fumarate (Perforomist) 20 mcg INHALATION RT-BID [facility] Last Admin: 12/06/18 08:11 Dose: 20 mcg Documented by: Heparin Sodium (Porcine) (Heparin) 5,000 unit SQ Q8HR [facility] Last Admin: 12/06/18 08:52 Dose: 5,000 unit Documented by: Levothyroxine Sodium (Synthroid) 100 mcg PO DAILY@0630 [facility] Last Admin: 12/06/18 05:36 Dose: 100 mcg Documented by: Levothyroxine Sodium (Synthroid) 75 mcg PO DAILY@0630 [facility] Last Admin: 12/06/18 05:36 Dose: 75 mcg Documented by: Patient's Own- Dilantin 100mg Capsule 1 each PO BID [facility] Last Admin: 12/06/18 08:52 Dose: 1 each Documented by: Pantoprazole Sodium (Protonix) 40 mg PO DAILY [facility] Last Admin: 12/06/18 08:52 Dose: 40 mg Documented by: Prednisone () 60 mg PO DAILY [facility] Last Admin: 12/06/18 08:50 Dose: 60 mg Documented by: Sertraline HCl (Zoloft) 50 mg PO BID [facility] Last Admin: 12/06/18 08:51 Dose: 50 mg Documented by: Timolol Maleate (Timoptic) 1 drops BOTH EYES DAILY [facility] Last Admin: 12/06/18 15:16 Dose: Not Given Documented by: Objective - Vital Signs Vital signs: Vital Signs Temp 97.3 F L 12/06/18 05:00 Pulse 72 12/06/18 16:54 Resp 17 12/06/18 13:00 BP 134/77 12/06/18 13:00 Pulse Ox 96 12/06/18 13:00 Intake & Output 12/05/18 12/06/18 12/06/18 18:59 06:59 18:59 Intake Total 300 240 0 Balance 300 240 0 Intake: Intake, IV Titration 300 Amount Sodium Chloride 0.9% 1, 300 000 ml @ 100 mls/hr IV . Q10H [facility] Rx#:[id number] Oral 240 Blood Product 0 Other: Voiding Method Toilet Toilet Bedside Commode Bedside Commode # Voids 1 - Exam GENERAL: The patient is alert , not oriented to place or time, not in any acute distress. Well developed, well nourished. HEENT: No pallor. No icterus. CARDIOVASCULAR: S1 and S2 present. No murmurs, rubs, or gallops. PULMONARY: Decreased air entry on both sides. No wheezes or crackles. ABDOMEN: Soft, nontender, nondistended, normoactive bowel sounds. No palpable organomegaly. MUSCULOSKELETAL: No joint swelling or deformity. EXTREMITIES: No cyanosis, clubbing, or pedal edema. NEUROLOGICAL: Gross neurological examination did not reveal any focal deficits. SKIN: No rashes. - Labs CBC & Chem 7: 12/04/18 07:25 12/06/18 09:24 Labs: Abnormal Lab Results - Last 24 Hours (Table) 12/06/18 Range/Units 09:24 Sodium 130 L (137-145) mmol/L Chloride 92 L (98-107) mmol/L Carbon Dioxide 37 H (22-30) mmol/L Assessment and Plan Assessment: ASSESSMENT Acute on chronic hypercapnic respiratory failure secondary to COPD exacerbation Encephalopathy Hyponatremia - resolving Seizure disorder Hypomagnesemia Hypothyroidism Hypertension Glaucoma Obesity with BMI of 37 PLAN: Patient's breathing status has improved with steroids and breathing treatments. But the current issues with her mentation, as per the patient's mentation is improving but not back to her baseline. Some of the differentials for her confusion may might be secondary to Dilantin or steroids or hyponatremia. We will continue with the current medication regimen. The treatment plan was discussed in detail with the today. Further recommendations depending on the progress of the patient.
[2018-12-06] MEDS: IPRATROPIUM-ALBUTEROL 3 ML NEB INHALATION PRN (23:58)
[2018-12-07] MEDS: IPRATROPIUM-ALBUTEROL 3 ML NEB INHALATION PRN (03:17)
[2018-12-07] MEDS: LEVOTHYROXINE 100 MCG TAB PO SCH (04:57)
[2018-12-07] MEDS: LEVOTHYROXINE 75 MCG TAB PO SCH (04:57)
[2018-12-07] MEDS: BUDESONIDE 1 MG/2 ML NEBU INHALATION SCH ×2 (07:44→20:28)
[2018-12-07] MEDS: IPRATROPIUM-ALBUTEROL 3 ML NEB INHALATION SCH ×4 (07:44→20:28)
[2018-12-07] MEDS: FORMOTEROL FUMARATE 20 MCG/2 ML NEBU INHALATION SCH ×2 (07:44→20:28)
[2018-12-07 07:58] LABS: Anion Gap 5 mmol/L; Blood Urea Nitrogen 18 mg/dL (7-17); Calcium 9.5 mg/dL (8.4-10.2); Carbon Dioxide 38 mmol/L (22-30); Chloride 91 mmol/L (98-107); Glucose 65 mg/dL (74-99); Potassium 4.5 mmol/L (3.5-5.1); Sodium 134 mmol/L (137-145)
[2018-12-07] MEDS: TIMOLOL 0.5% OPHTH DROPS 5 ML BTL BOTH EYES SCH (08:13)
[2018-12-07] MEDS: PANTOPRAZOLE 40 MG TABLET PO SCH (08:13)
[2018-12-07] MEDS: DOXYCYCLINE 100 MG CAP PO SCH ×2 (08:13→20:15)
[2018-12-07] MEDS: DILANTIN 100 MG PO SCH ×2 (08:13→20:15)
[2018-12-07] MEDS: predniSONE 20 MG TAB PO SCH (08:13)
[2018-12-07] MEDS: SERTRALINE 50 MG TAB PO SCH ×2 (08:13→20:15)
[2018-12-07] MEDS: FAMOTIDINE 20 MG TAB PO SCH ×2 (08:13→20:15)
[2018-12-07] MEDS: HEPARIN SODIUM,PORCINE 5,000 UNIT/ML 1 ML VIAL SQ SCH ×2 (08:14→17:55)
--- NOTE | 2018-12-07 16:01 | P.PN ---
Subjective Progress Note Date: 12/07/18 Principal diagnosis: COPD exacerbation Mrs. Nunez is a 78-year-old female admitted to the hospital with COPD exacerbation. Patient's breathing status has improved but she was confused yesterday. Patient's at the bedside and states that if she takes generic Dilantin she always has issues with her mentation. So the patient's brought her own Dilantin from home that she started taking. As per the discussion with the states that her mentation is improving but not back to her baseline. On 12/07/18 - as per the nursing staff report patient did not sleep continuously for a few hours in the past 2 days. He has been mentions that whenever she is on steroids it keeps her awake. Patient is still confused. Her remote memory seems to be intact and she has confusion in terms of short-term memory. She still thinks she is in [place]. Patient still having mild difficulty in breathing. No chest pain or palpitations. Denies having any abdominal pain nausea vomiting or diarrhea. No dysuria or hematuria. Active Medications Albuterol/Ipratropium (Duoneb 0.5 Mg-3 Mg/3 Ml Soln) 3 ml INHALATION RT-QID [facility] Last Admin: 12/07/18 15:49 Dose: 3 ml Documented by: Albuterol/Ipratropium (Duoneb 0.5 Mg-3 Mg/3 Ml Soln) 3 ml INHALATION RT-Q2H PRN PRN Reason: Shortness Of Breath Or Wheezing Last Admin: 12/07/18 03:17 Dose: 3 ml Documented Atorvastatin Calcium (Lipitor) 20 mg PO HS [facility] Last Admin: 12/06/18 19:41 Dose: 20 mg Documented by: Budesonide (Pulmicort) 1 mg INHALATION RT-BID [facility] Last Admin: 12/07/18 07:44 Dose: 1 mg Documented by: Doxycycline Monohydrate (Vibramycin) 100 mg PO BID [facility] Last Admin: 12/07/18 08:13 Dose: 100 mg Documented by: Famotidine (Pepcid) 20 mg PO BID [facility] Last Admin: 12/07/18 08:13 Dose: 20 mg Documented by: Formoterol Fumarate (Perforomist) 20 mcg INHALATION RT-BID [facility] Last Admin: 12/07/18 07:44 Dose: 20 mcg Documented by: Heparin Sodium (Porcine) (Heparin) 5,000 unit SQ Q8HR [facility] Last Admin: 12/07/18 08:14 Dose: 5,000 unit Documented by: Levothyroxine Sodium (Synthroid) 100 mcg PO DAILY@0630 [facility] Last Admin: 12/07/18 04:57 Dose: 100 mcg Documented by: Levothyroxine Sodium (Synthroid) 75 mcg PO DAILY@0630 [facility] Last Admin: 12/07/18 04:57 Dose: 75 mcg Documented by: Patient's Own- Dilantin 100mg Capsule 1 each PO BID [facility] Last Admin: 12/07/18 08:13 Dose: 1 each Documented by: Pantoprazole Sodium (Protonix) 40 mg PO DAILY [facility] Last Admin: 12/07/18 08:13 Dose: 40 mg Documented by: Prednisone () 60 mg PO DAILY [facility] Last Admin: 12/07/18 08:13 Dose: 60 mg Documented by: Sertraline HCl (Zoloft) 50 mg PO BID [facility] Last Admin: 12/07/18 08:13 Dose: 50 mg Documented by: Timolol Maleate (Timoptic) 1 drops BOTH EYES DAILY [facility] Last Admin: 12/07/18 08:13 Dose: 1 drops Documented by: Objective - Vital Signs Vital signs: Vital Signs Temp 97.4 F L 12/07/18 13:00 Pulse 70 12/07/18 15:51 Resp 17 12/07/18 13:00 BP 134/77 12/07/18 13:00 Pulse Ox 97 12/07/18 13:00 Intake & Output 12/06/18 12/07/18 12/07/18 18:59 06:59 18:59 Intake Total 0 300 Balance 0 300 Intake: Oral 300 Blood Product 0 Other: Voiding Method Toilet Bedside Commode # Voids 2 1 # Bowel Movements 1 - Exam GENERAL: The patient is alert , not oriented to place or time, not in any acute distress. Well developed, well nourished. HEENT: No pallor. No icterus. CARDIOVASCULAR: S1 and S2 present. No murmurs, rubs, or gallops. PULMONARY: Decreased air entry on both sides. Mild end expiratory wheezes on both sides ABDOMEN: Soft, nontender, nondistended, normoactive bowel sounds. No palpable organomegaly. MUSCULOSKELETAL: No joint swelling or deformity. EXTREMITIES: No cyanosis, clubbing, or pedal edema. NEUROLOGICAL: Gross neurological examination did not reveal any focal deficits. SKIN: No rashes. - Labs CBC & Chem 7: 12/04/18 07:25 12/07/18 07:04 Labs: Abnormal Lab Results - Last 24 Hours (Table) 12/07/18 Range/Units 07:04 Sodium 134 L (137-145) mmol/L Chloride 91 L (98-107) mmol/L Carbon Dioxide 38 H (22-30) mmol/L BUN 18 H (7-17) mg/dL Glucose 65 L (74-99) mg/dL Assessment and Plan Assessment: ASSESSMENT Acute on chronic hypercapnic respiratory failure secondary to COPD exacerbation Encephalopathy Hyponatremia - resolving Seizure disorder Hypomagnesemia Hypothyroidism Hypertension Glaucoma Obesity with BMI of 37 PLAN: Patient's breathing status has improved with steroids and breathing treatments. But the current issues with her mentation, as per the patient's mentation is improving but not back to her baseline. Patient is still confused. Some of the differentials for her confusion may might be secondary to Dilantin or steroids or hyponatremia. Her Xanax has been discontinued. Patient is transferred to a single room , which is more quiet and would be helpful for the patient to have better reorientation We will continue with m rest of theedication regimen. The treatment plan was discussed in detail with the today. Further recommendations depending on the progress of the patient.
[2018-12-07] MEDS: ATORVASTATIN 20 MG TAB PO SCH (20:15)
[2018-12-08] MEDS: IPRATROPIUM-ALBUTEROL 3 ML NEB INHALATION PRN ×2 (00:35→04:38)
[2018-12-08] MEDS: HEPARIN SODIUM,PORCINE 5,000 UNIT/ML 1 ML VIAL SQ SCH ×2 (00:56→07:14)
[2018-12-08] MEDS: LEVOTHYROXINE 100 MCG TAB PO SCH (05:57)
[2018-12-08] MEDS: LEVOTHYROXINE 75 MCG TAB PO SCH (05:57)
[2018-12-08] MEDS: SERTRALINE 50 MG TAB PO SCH (07:14)
[2018-12-08] MEDS: FAMOTIDINE 20 MG TAB PO SCH (07:14)
[2018-12-08] MEDS: predniSONE 20 MG TAB PO SCH (07:14)
[2018-12-08] MEDS: PANTOPRAZOLE 40 MG TABLET PO SCH (07:14)
[2018-12-08] MEDS: DOXYCYCLINE 100 MG CAP PO SCH (07:15)
[2018-12-08] MEDS: DILANTIN 100 MG PO SCH (07:15)
[2018-12-08] MEDS: TIMOLOL 0.5% OPHTH DROPS 5 ML BTL BOTH EYES SCH (07:15)
[2018-12-08] MEDS: BUDESONIDE 1 MG/2 ML NEBU INHALATION SCH (09:15)
[2018-12-08] MEDS: FORMOTEROL FUMARATE 20 MCG/2 ML NEBU INHALATION SCH (09:15)
[2018-12-08] MEDS: IPRATROPIUM-ALBUTEROL 3 ML NEB INHALATION SCH ×2 (09:15→13:40)
[2018-12-08 10:02] LABS: Basophils % (A) 0 %; Eosinophils # (A) 0.1 k/uL (0-0.7); Eosinophils % (A) 2 %; HCT 33.3 % (34.0-46.0); HGB 10.4 gm/dL (11.4-16.0); Lymphocytes # (A) 0.6 k/uL (1.0-4.8); Lymphocytes % (A) 14 %; MCH 29.6 pg (25.0-35.0); MCHC 31.4 g/dL (31.0-37.0); MCV 94.4 fL (80.0-100.0); Mean Platelet Volume 8.2; Monocytes # (A) 0.4 k/uL (0-1.0); Monocytes % (A) 9 %; Neutrophils # (A) 3.3 k/uL (1.3-7.7); Neutrophils % (A) 73 %; Platelet Count 208 k/uL (150-450); RBC 3.53 m/uL (3.80-5.40); RDW 15.5 % (11.5-15.5); WBC 4.6 k/uL (3.8-10.6)
[2018-12-08 10:33] LABS: Anion Gap 5 mmol/L; Blood Urea Nitrogen 21 mg/dL (7-17); Calcium 9.6 mg/dL (8.4-10.2); Carbon Dioxide 35 mmol/L (22-30); Chloride 94 mmol/L (98-107); Glucose 84 mg/dL (74-99); Potassium 4.5 mmol/L (3.5-5.1); Sodium 134 mmol/L (137-145)
[2018-12-08 13:16] VITALS: BP 135/87; RESP 18; TEMP 97.4
[2018-12-08 13:58] VITALS: PULSE 80
--- NOTE | 2018-12-08 14:34 | P.DS ---
Providers Date of admission: 12/03/18 23:07 Expected date of discharge: 12/08/18 Attending physician: Chino García Consults: 12/04/18 12:08 Consult Physician Routine Consulting Provider: Tate Martins Consult Reason/Comments: copd Do you want consulting provider notified?: Yes Primary care physician: [facility] Course: Ms. Nunez is a 78-year-old with a past medical history of COPD, seizure disorder, hypothyroidism, brain aneurysm transferred from [facility] for the chief complaint of difficulty in breathing. Patient's difficulty in breathing has improved with steroids and breathing treatments. She was also started on doxycycline. Patient was slightly hyponatremic, her diuretic was held. Sodium improved. But patient developed delirium was confused at the time of her discharge couple of days back. So workup with CAT scan of the brain was done which was within normal limits. As per discussion with the if the patient takes the generic Dilantin she always had issues with her mentation. So her brought her Dilantin from the house which she has been taking for the past couple of days. Other differentials that also that she was on steroids. Patient's mentation improved, today patient is much more with it. As per discussion with the he wants to take her home. Patient denies having any difficulty in breathing. She is alert awake oriented 2-3 which is her baseline. So the decision was made to send her home with her . Vital Signs 12/08/18 12/08/18 12/08/18 09:18 09:30 09:31 Temperature Pulse Rate 72 72 72 Pulse Rate [ Pulse Oximetery ] Respiratory Rate Blood Pressure [Right Arm] O2 Sat by Pulse 96 Oximetry 12/08/18 12/08/18 12/08/18 09:42 13:00 13:41 Temperature 97.4 F L Pulse Rate 76 72 Pulse Rate [ 66 Pulse Oximetery ] Respiratory 18 Rate Blood Pressure 135/87 [Right Arm] O2 Sat by Pulse 95 Oximetry 12/08/18 13:57 Temperature Pulse Rate 80 Pulse Rate [ Pulse Oximetery ] Respiratory Rate Blood Pressure [Right Arm] O2 Sat by Pulse Oximetry PHYSICAL EXAMINATION: GENERAL: No acute distress. HEENT: Pupils are round and equally reacting to light. EOMI. No scleral icterus. No conjunctival pallor. Normocephalic, atraumatic. No pharyngeal erythema. No thyromegaly. CARDIOVASCULAR: S1 and S2 present. No murmurs, rubs, or gallops. PULMONARY: Very minimal air entry on both sides of the lung. No wheezing. No crackles. ABDOMEN: Soft, nontender, nondistended, normoactive bowel sounds. No palpable organomegaly. MUSCULOSKELETAL: No joint swelling or deformity. EXTREMITIES: No cyanosis, clubbing, or pedal edema. NEUROLOGICAL: Patient is alert oriented 2-3. She could tell me where she is, came in the [facility] and also current president. SKIN: No rashes. DISCHARGE DIAGNOSIS Acute on chronic hypercapnic respiratory failure secondary to COPD exacerbation Encephalopathy - resolved Hyponatremia - resolving Seizure disorder Hypomagnesemia Hypothyroidism Hypertension Glaucoma Obesity with BMI of 37 PLAN: Patient showed significant improvement in her respiratory status. She completed 5 days of doxycycline. As the thinks it might be steroids that gave her the confusion her prednisone has been discontinued. I'm not going to discharge home on prednisone. But in case her symptoms worsen, she is advised to come back. Currently patient's mentation is at her baseline. Her hyponatremia resolved. Xanax was discontinued yesterday . The treatment plan was discussed in detail with the patient's and he plans to take her home with him today. Patient is advised to follow with her primary care physician in 2-3 days. More than 35 minutes spent towards the discharge of the patient. Patient Condition at Discharge: Fair Plan - Discharge Summary Discharge Rx Participant: No New Discharge Prescriptions: New Valsartan [Diovan] 160 mg PO DAILY #30 tablet Budesonide [Pulmicort] 1 mg INHALATION RT-BID #30 nebu Continue Timolol 0.5% Ophth Soln [Timoptic 0.5% Ophth Soln] 1 drop BOTH EYES DAILY Albuterol Sulfate [Proair Hfa] 1 - 2 puff INHALATION RT-QID PRN PRN Reason: Shortness Of Breath Simvastatin 40 mg PO HS Sertraline [Zoloft] 50 mg PO BID Esomeprazole Magnesium [NexIUM] 40 mg PO DAILY Phenytoin Sodium Extended [Dilantin] 100 mg PO BID Cetirizine HCl 10 mg PO DAILY Albuterol Nebulized [Ventolin Nebulized] 2.5 mg INHALATION RT-QID PRN PRN Reason: Shortness Of Breath ALPRAZolam [Xanax] 0.25 mg PO BID PRN PRN Reason: Anxiety Levothyroxine Sodium [Synthroid] 175 mcg PO DAILY Discontinued Valsartan/Hydrochlorothiazide [Valsartan-Hctz 160-12.5 mg Tab] 1 tab PO HS Discharge Medication List ALPRAZolam [Xanax] 0.25 mg PO BID PRN 12/03/18 [History] Albuterol Nebulized [Ventolin Nebulized] 2.5 mg INHALATION RT-QID PRN 12/03/18 [History] Albuterol Sulfate [Proair Hfa] 1 - 2 puff INHALATION RT-QID PRN 12/03/18 [History] Cetirizine HCl 10 mg PO DAILY 12/03/18 [History] Esomeprazole Magnesium [NexIUM] 40 mg PO DAILY 12/03/18 [History] Levothyroxine Sodium [Synthroid] 175 mcg PO DAILY 12/03/18 [History] Phenytoin Sodium Extended [Dilantin] 100 mg PO BID 12/03/18 [History] Sertraline [Zoloft] 50 mg PO BID 12/03/18 [History] Simvastatin 40 mg PO HS 12/03/18 [History] Timolol 0.5% Ophth Soln [Timoptic 0.5% Ophth Soln] 1 drop BOTH EYES DAILY 12/03/18 [History] Budesonide [Pulmicort] 1 mg INHALATION RT-BID #30 nebu 12/05/18 [Rx] Valsartan [Diovan] 160 mg PO DAILY #30 tablet 12/05/18 [Rx] Follow up Appointment(s)/Referral(s): Alka Springer MD [STAFF PHYSICIAN] - 12/10/18 11:15 am (in [place] office) Nella Santos PAC [REFERRING] - 12/17/18 2:30 pm [facility], [NON-STAFF] - As Needed Activity/Diet/Wound Care/Special Instructions: activity as tolerated safety continue O2 at home heart healthy diet as tolerated Discharge Disposition: HOME SELF-CARE
== END 2018-12-08 14:50 | disposition home health service (06) | DRG 190 ==
LOC: SUPCPDRO 22:20 → EC 22:20 → 3NMEDONC 23:07 → 4MS4W 12-07 18:29
PROVIDERS: ADMIT Hospitalist; ATTEND Hospitalist
DX: J44.1 Chronic obstructive pulmonary disease with (acute) exacerbation (principal); J96.21 Acute and chronic respiratory failure with hypoxia; J96.22 Acute and chronic respiratory failure with hypercapnia; G92 Toxic encephalopathy; E87.1 Hypo-osmolality and hyponatremia; S22.39XA Fracture of one rib, unspecified side, initial encounter for closed fracture; J98.11 Atelectasis; I27.81 Cor pulmonale (chronic); I67.1 Cerebral aneurysm, nonruptured; E87.70 Fluid overload, unspecified; E83.42 Hypomagnesemia; E87.8 Other disorders of electrolyte and fluid balance, not elsewhere classified; G40.909 Epilepsy, unspecified, not intractable, without status epilepticus; I10 Essential (primary) hypertension; T42.0X5A Adverse effect of hydantoin derivatives, initial encounter; E03.9 Hypothyroidism, unspecified; I25.2 Old myocardial infarction; F32.9 Major depressive disorder, single episode, unspecified; M19.90 Unspecified osteoarthritis, unspecified site; T50.2X5A Adverse effect of carbonic-anhydrase inhibitors, benzothiadiazides and other diuretics, initial encounter; E78.5 Hyperlipidemia, unspecified; K21.9 Gastro-esophageal reflux disease without esophagitis; M54.9 Dorsalgia, unspecified; D72.819 Decreased white blood cell count, unspecified; F41.9 Anxiety disorder, unspecified; H40.9 Unspecified glaucoma; R74.8 Abnormal levels of other serum enzymes; E66.9 Obesity, unspecified; Z68.37 Body mass index [BMI] 37.0-37.9, adult; Z99.81 Dependence on supplemental oxygen; Z79.890 Hormone replacement therapy; Z79.899 Other long term (current) drug therapy; Z85.828 Personal history of other malignant neoplasm of skin; Z90.710 Acquired absence of both cervix and uterus; Z90.49 Acquired absence of other specified parts of digestive tract; Z87.891 Personal history of nicotine dependence; Z88.8 Allergy status to other drugs, medicaments and biological substances; Z88.5 Allergy status to narcotic agent; Z91.041 Radiographic dye allergy status; Z91.048 Other nonmedicinal substance allergy status; Z80.9 Family history of malignant neoplasm, unspecified
CPT/HCPCS: 71046; 80048; 80053; 80185; 83735; 85025; 94640; 94760; 99284